=== PATIENT | female | born 1965 | race Hispanic/Latino ===

== ENCOUNTER 2020-01-18 13:27 | Emergency (ER) | payer SELFPAY ==
[2020-01-18] MEDS ORDERED: ONDANSETRON 4 MG/2 ML INJ IV ONE (14:27)
[2020-01-18] MEDS ORDERED: fentaNYL 100 MCG/2 ML INJ IV ONE ×2 (14:27→16:41)
--- NOTE | 2020-01-18 14:33 | Emergency Department Report ---
HPI - General Chief Complaint: Dyspnea/Respdistress Time Seen by Provider: 01/18/20 14:21 - HPI HPI: Room 18 Patient is a 54-year-old female present with a chief complaint of chest pain and shortness of breath. Patient is currently a patient at [facility] under 1013 and states 2 hours ago she developed left chest heaviness and shortness of breath. Patient states her chest pain is associated with shortness of breath, diaphoresis and nausea without vomiting. Patient denies cough. The patient is currently on Eliquis secondary to PE 2 years ago ED Past Medical Hx - Past Medical History Hx Hypertension: Yes Hx Diabetes: Yes Hx Pulmonary Embolism: Yes Hx COPD: Yes (4 L home O2) - Surgical History Additional Surgical History: Partial gastrectomy, partial colectomy, - Family History Family history: no significant - Social History Smoking Status: Current Every Day Smoker (1/2 pack/day) Substance Use Type: None (Denies illicit drug use) ED Review of Systems ROS: Stated complaint: CHEST PAIN Other details as noted in HPI Constitutional: diaphoresis Eyes: denies: eye pain ENT: denies: throat pain Respiratory: shortness of breath. denies: cough Cardiovascular: chest pain Endocrine: no symptoms reported Gastrointestinal: nausea. denies: vomiting Musculoskeletal: denies: back pain Neurological: denies: headache Physical Exam - Physical Exam Physical Exam: GENERAL: The patient is well-developed well-nourished female sitting on stretcher not appearing to be in acute distress. [] HEENT: Normocephalic. Atraumatic. Extraocular motions are intact. Patient has moist mucous membranes. NECK: Supple. Trachea midline CHEST/LUNGS: Clear to auscultation. There is no respiratory distress noted. HEART/CARDIOVASCULAR: Regular. There is no tachycardia. There is no gallop rub or murmur. ABDOMEN: Abdomen is soft, nontender. Patient has normal bowel sounds. There is no abdominal distention. SKIN: There is no rash. There is no edema. There is no diaphoresis. NEURO: The patient is awake, alert, and oriented. The patient is cooperative. The patient has normal speech MUSCULOSKELETAL: There is no evidence of acute injury. ED Medical Decision Making - Lab Data Result diagrams: 01/18/20 14:31 01/18/20 14:31 Laboratory Tests 01/18/20 01/18/20 01/18/20 14:31 14:31 14:31 WBC 7.2 RBC 3.65 Hgb 10.7 Hct 32.3 MCV 89 MCH 29 MCHC 33 RDW 15.3 H Plt Count 292 Lymph % (Auto) 13.4 [place] % (Auto) 4.2 Eos % (Auto) 0.3 Baso % (Auto) 2.0 H Lymph # 1.0 L [place] # 0.3 Eos # 0.0 Baso # 0.1 Seg Neutrophils % 80.1 H Seg Neutrophils # 5.8 PT 12.3 INR 0.91 APTT 28.8 D-Dimer 284.92 H Sodium 137 Potassium 4.9 Chloride 105.9 Carbon Dioxide 18 L Anion Gap 18 BUN 15 Creatinine 0.6 L Estimated GFR > 60 BUN/Creatinine Ratio 25 Glucose 90 Calcium 9.6 Total Creatine Kinase 60 CK-MB (CK-2) 5.6 H CK-MB (CK-2) Rel Index 9.3 H Troponin T < 0.010 NT-Pro-B Natriuret Pep 127.5 - EKG Data -: EKG Interpreted by Nv EKG shows normal: sinus rhythm Rate: tachycardia (105 bpm) - EKG Data When compared to previous EKG there are: previous EKG unavailable Interpretation: other (No ischemic changes seen) - Radiology Data Radiology results: report reviewed (CT chest), image reviewed (CT chest) [place] [id number] Cat Scan Report Signed Patient: NANDO GEORGE MR#: [id number] : 1965 Acct:[id number] Age/Sex: 54 / F ADM Date: 01/18/20 Loc: ED Attending Dr: Ordering Physician: NEDA PERRY MD Date of Service: 01/18/20 Procedure(s): CT angio chest Accession Number(s): [id number] cc: NEDA PERRY MD CT angio chest INDICATION: MAIN: Chest pain center LT x2 days [id number] 100ml . TECHNIQUE: All CT scans at this location are performed using CT dose reduction for ALARA by means of automated exposure control. Precontrast localizer images were obtained, followed by axial and 3-dimensional reconstruction images, performed at an independent workstation by the lead technologist in cytogenetics after IV bolus contrast injection COMPARISON: . None FINDINGS: Mediastinum, roxanne and axillae are negative. Lungs are hyperinflated, with mild interstitial disease but no acu te disease. No evidence of pulmonary embolus. IMPRESSION: 1. Negative for pulmonary embolus or other acute disease. Signer Name: Lavon Reilly MD Signed: 01/18/2020 4:21 PM Workstation Name: [id number] Transcribed By: TM Dictated By: Lavon Reilly MD Electronically Authenticated By: Lavon Reilly MD Signed Date/Time: 01/18/201620 DD/ 18 TD/TT: - Differential Diagnosis ACS, PE, pericarditis, COPD exacerbation, pneumonia Critical care attestation.: If time is entered above; I have spent that time in minutes in the direct care of this critically ill patient, excluding procedure time. ED Disposition Clinical Impression: Chest pain Disposition: OP ADMIT IP TO THIS HOSP Is pt being admited?: Yes Does the pt Need Aspirin: Yes Condition: Fair Instructions: Chest Pain (ED) Time of Disposition: 17:12 (Hospitalist paged (Dr. Jefferson))
[2020-01-18 15:11] LABS: Basophils # (Auto) 0.1 K/mm3 (0.0-0.1); Eosinophils % (Auto) 0.3 % (0.0-4.3); Hematocrit 32.3 % (30.3-42.9); Hemoglobin 10.7 gm/dl (10.1-14.3); Lymphocytes % (Auto) 13.4 % (13.4-35.0); Mean Corpuscular HGB Conc 33 % (30-34); Mean Corpuscular Volume 89 fl (79-97); Monocytes # (Auto) 0.3 K/mm3 (0.0-0.8); Monocytes % (Auto) 4.2 % (0.0-7.3); Platelet Count 292 K/mm3 (140-440); Red Blood Count 3.65 M/mm3 (3.65-5.03); Red Cell Distribution Width 15.3 % (13.2-15.2)
[2020-01-18 15:23] LABS: INR 0.91 (0.87-1.13)
[2020-01-18 15:24] LABS: Partial Thromboplastin Time 28.8 Sec. (24.2-36.6)
[2020-01-18 15:33] LABS: Creatine Kinase MB 5.6 ng/mL (0.0-4.0)
[2020-01-18 15:36] LABS: BUN/Creatinine Ratio 25; Blood Urea Nitrogen 15 mg/dL (7-17); Calcium 9.6 mg/dL (8.4-10.2); Hemolysis Index 2
--- NOTE | 2020-01-18 16:26 | Cat Scan Report ---
CT angio chest INDICATION: MAIN: Chest pain center LT x2 days [id number] 100ml . TECHNIQUE: All CT scans at this location are performed using CT dose reduction for ALARA by means of automated e xposure control. Precontrast localizer images were obtained, followed by axial and 3-dimensional reconstruction images , performed at an independent workstation by the vascular technologist after IV bolus contrast injection COMPARISON: . None FINDINGS: Mediastinum, roxanne and axillae are negative. Lungs are hyperinflated, with mild interstitial disease b ut no acute disease. No evidence of pulmonary embolus. IMPRESSION: 1. Negative for pulmonary embolus or other acute disease. Signer Name: Lavon Reilly MD Signed: 01/18/2020 4:21 PM Workstation Name: [id number]
[2020-01-18] MEDS ORDERED: ASPIRIN 325 MG TAB PO ONE (16:37)
[2020-01-18] MEDS ORDERED: NITROGLYCERIN 2% OINT 1 GM TP ONE (16:41)
--- NOTE | 2020-01-18 17:20 | Event Note ---
Date: 01/18/20 54-year-old female presents to ED for evaluation of atypical chest pain. Patient seen and evaluated in the emergency department. Serial cardiac enzymes, EKG and telemetry monitoring were negative for acute ischemia. Patient found to have symptoms consistent with generalized anxiety disorder. Patient treated with Ativan, IV fluid resuscitation therapy and supportive care with normalization of patient's symptoms. Patient medically optimized and back to usual state of health. Patient discharged to inpatient psychiatry for management of generalized anxiety disorder. Physical Exam: GENERAL: The patient is well-developed well-nourished female sitting on stretcher not appearing to be in acute distress. [] HEENT: Normocephalic. Atraumatic. Extraocular motions are intact. Patient has moist mucous membranes. NECK: Supple. Trachea midline CHEST/LUNGS: Clear to auscultation. There is no respiratory distress noted. HEART/CARDIOVASCULAR: Regular. There is no tachycardia. There is no gallop rub or murmur. ABDOMEN: Abdomen is soft, nontender. Patient has normal bowel sounds. There is no abdominal distention. SKIN: There is no rash. There is no edema. There is no diaphoresis. NEURO: The patient is awake, alert, and oriented. The patient is cooperative. The patient has normal speech MUSCULOSKELETAL: There is no evidence of acute injury.
[2020-01-18] MEDS ORDERED: LORazepam 2 MG/ML VIAL IV PRN (17:30)
[2020-01-18] MEDS ORDERED: SODIUM CHLORIDE 0.9% 1000 ML 1,000 ML ONE (17:33)
[2020-01-18] MEDS ORDERED: hydrALAZINE 20 MG/1 ML INJ IV ONE (18:00)
[2020-01-18] MEDS ORDERED: diphenhydrAMINE 50 MG/ML VIAL IV ONE (18:24)
[2020-01-18] MEDS ORDERED: methylPREDNISolone Sod Succinate 40 MG/1 ML INJ IV ONE (18:24)
[2020-01-18 19:55] VITALS: BP 162/98
== END 2020-01-18 19:55 | disposition admitted as inpatient to this hospital (09) ==
LOC: ED 13:27
DX: R07.89 Other chest pain (principal); R06.02 Shortness of breath; F17.210 Nicotine dependence, cigarettes, uncomplicated; I10 Essential (primary) hypertension; E11.9 Type 2 diabetes mellitus without complications; J44.9 Chronic obstructive pulmonary disease, unspecified; Z98.890 Other specified postprocedural states; Z88.6 Allergy status to analgesic agent; Z88.2 Allergy status to sulfonamides
CPT/HCPCS: 36415; 71275; 80048; 82550; 82553; 83880; 84484; 85025; 85379; 85610; 85730; 93005; 93010; 96374; 96375; 99283; J1200; J2060; J2405; J2920; J3010; J7030; Q9967